=== PATIENT | female | born 1970 | race Two or more races ===

== ENCOUNTER 2016-08-09 16:33 | Emergency (ER) | payer SELFPAY ==
[~2016-08-09] VITALS: Ht 165.1 cm; Wt 104.7 kg
[2016-08-09] MEDS ORDERED: SODIUM CHLORIDE FLUSH 10ML SYR IVF ONE (18:30)
[2016-08-09] MEDS ORDERED: ASPIRIN 81 MG TABLET CHEW PO ONE (18:30)
[2016-08-09] MEDS ORDERED: ONDANSETRON 2MG/ML, 2ML IVPush ONE (18:30)
[2016-08-09] MEDS ORDERED: SODIUM CHLORIDE 0.9% 1,000ML IVBOLUS ONE (18:30)
[2016-08-09] MEDS ORDERED: ASPIRIN 81 MG TABLET CHEW ONE (18:32)
[2016-08-09] MEDS ORDERED: ONDANSETRON 2MG/ML, 2ML ONE (18:33)
[2016-08-09 18:42] LABS: ASPARTATE AMINO TRANSFERASE 27 U/L (15-37); BLOOD UREA NITROGEN 13 mg/dL (7-18)
[2016-08-09 18:48] LABS: IS PT STATUS REG ER OR PRE ER? YES
[2016-08-09 19:24] VITALS: BP 113/59
[2016-08-09 19:35] LABS: HCG UR OBC PASS
== END 2016-08-09 20:36 | disposition home or self-care (01) ==
LOC: ED 17:52
DX: R10.13 Epigastric pain (principal)
CPT/HCPCS: 36415; 71010; 80053; 81003; 81025; 83605; 83690; 83735; 84484; 85025; 85379; 85610; 93005; 96361; 96374; 99285; J2405; J7030

== ENCOUNTER 2016-11-13 20:47 | Emergency (ER) | payer MEDICAID ==
[~2016-11-13] VITALS: Ht 170.2 cm; Wt 107.0 kg
[2016-11-13] MEDS ORDERED: SODIUM CHLORIDE FLUSH 10ML SYR IVF ONE (21:00)
[2016-11-13] MEDS ORDERED: ASPIRIN 81 MG TABLET CHEW PO ONE (21:00)
[2016-11-13] MEDS ORDERED: PLEASE ENTER HEIGHT AND WEIGHT MC SCH (21:30)
[2016-11-13 21:31] LABS: HEMATOCRIT 40.3 % (34.6-47.8); HEMOGLOBIN 13.4 g/dL (11.7-16.4); WHITE BLOOD COUNT 8.7 x10^3/uL (3.4-10)
[2016-11-13 21:41] LABS: BLOOD UREA NITROGEN 23 mg/dL (7-18)
[2016-11-13 21:46] LABS: IS PT STATUS REG ER OR PRE ER? YES
[2016-11-13 21:51] VITALS: BP 148/78
[2016-11-13] MEDS ORDERED: ASPIRIN 81 MG TABLET CHEW ONE (21:56)
[2016-11-13] MEDS ORDERED: ACETAMINOPHEN 500 MG TABLET ONE (21:56)
[2016-11-13] MEDS ORDERED: ACETAMINOPHEN 500 MG TABLET PO ONE (22:00)
== END 2016-11-13 22:40 | disposition home or self-care (01) ==
LOC: ED 21:47
DX: I49.3 Ventricular premature depolarization (principal); R07.89 Other chest pain; R00.8 Other abnormalities of heart beat; F41.9 Anxiety disorder, unspecified; Z98.890 Other specified postprocedural states
CPT/HCPCS: 36415; 71010; 80048; 82040; 84484; 85025; 93005; 96372; 99285

== ENCOUNTER 2017-02-10 10:14 | Day surgery (SDC) | payer OTHER, MEDICAID ==
[2017-02-09 16:25] VITALS: BP 165/98
[2017-02-09 16:58] LABS: HEMATOCRIT 40.6 % (34.6-47.8); HEMOGLOBIN 13.4 g/dL (11.7-16.4); WHITE BLOOD COUNT 9.9 x10^3/uL (3.4-10)
[2017-02-09 17:00] LABS: BLOOD UREA NITROGEN 18 mg/dL (7-18)
[~2017-02-10] VITALS: Ht 165.1 cm; Wt 100.9 kg
[~2017-02-10 10:14] MED LIST: ASPI325T17 PO; IBUP200C8 PO; OMEP-110 PO; OMEP10CA4 PO
[2017-02-10] MEDS ORDERED: SODIUM CHLORIDE 0.9% 1,000 ML IV SCH ×2 (11:36→12:40)
[2017-02-10] MEDS ORDERED: BIVALIRUDIN 250 MG ONE (11:39)
[2017-02-10] MEDS ORDERED: VERAPAMIL 2.5 MG/ML, 2ML ONE ×2 (11:39→12:28)
[2017-02-10] MEDS ORDERED: MIDAZOLAM 1 MG/ML, 5ML ONE ×2 (11:39→12:25)
[2017-02-10] MEDS ORDERED: NITROGLYCERIN 5 MG/ML, 10ML ONE (11:39)
[2017-02-10] MEDS ORDERED: LIDOCAINE 2%, 20ML ONE (11:39)
[2017-02-10] MEDS ORDERED: FENTANYL PF 100 MCG/2ML ONE ×2 (11:39→12:25)
[2017-02-10] MEDS ORDERED: TICAGRELOR 90 MG TABLET ONE (11:39)
[2017-02-10] MEDS ORDERED: HEPARIN 1,000 UNITS/ML, 10ML ONE (11:40)
[2017-02-10] MEDS ORDERED: HYDR-3240 PO (11:43)
[2017-02-10] MEDS ORDERED: METO25TA35 PO (11:43)
[2017-02-10] MEDS ORDERED: DIPHENHYDRAMINE 50 MG/ML, 1ML ONE (12:28)
[2017-02-10] MEDS ORDERED: ASPIRIN 325 MG TABLET PO PRN (13:00)
[2017-02-10] MEDS ORDERED: ACETAMINOPHEN 325 MG TABLET PO PRN (13:00)
[2017-02-10] MEDS ORDERED: OMEPRAZOLE 20 MG CAPSULE.DR PO PRN (13:00)
[2017-02-10] MEDS ORDERED: HYDROcodone/APAP 5/325 TABLET PO SCH (13:00)
[2017-02-10] MEDS ORDERED: IBUPROFEN 200 MG TABLET PO PRN (13:00)
[2017-02-10] MEDS ORDERED: HYDROcodone/APAP 5/325 TABLET ONE (14:16)
[2017-02-10] MEDS ORDERED: HYDROcodone/APAP 5/325 TABLET PO ONE (14:30)
[2017-02-10] MEDS ORDERED: METOPROLOL TARTRATE 25 MG TABLET PO SCH (21:00)
== END 2017-02-10 16:21 | disposition home or self-care (01) ==
LOC: CACL 10:14
PROVIDERS: ATTEND Internal Medicine Cardiovascular Disease
DX: R07.9 Chest pain, unspecified (principal); I49.3 Ventricular premature depolarization
CPT/HCPCS: 36415; 80048; 85025; 93458; 99156; C1769; C1894; J1200; J1644; J2250; J3010; J3490; Q9967; J0583

== ENCOUNTER 2017-06-02 15:39 | Emergency (ER) | payer OTHER, MEDICAID ==
[~2017-06-02] VITALS: Ht 170.2 cm; Wt 112.3 kg
[~2017-06-02 15:39] MED LIST changes: +HYDR-3240 PO; +METO25TA35 PO
[2017-06-02 16:16] LABS: BASOPHILS # (AUTO) 0.06 x10^3/uL (0-0.1); BASOPHILS % (AUTO) 1 % (0-1); EOSINOPHILS # (AUTO) 0.49 x10^3/uL (0-0.4); EOSINOPHILS % (AUTO) 4 % (1-7); LYMPHOCYTES # (AUTO) 2.42 x10^3/uL (1-3.4); LYMPHOCYTES % (AUTO) 22 % (22-44); MD NO; MEAN CORPUSCULAR HEMOGLOBIN 27.4 pg (27.0-34.8); MEAN CORPUSCULAR HGB CONC 32.8 g/dL (32.4-35.8); MEAN CORPUSCULAR VOLUME 83.7 fL (80-100); MEAN PLATELET VOLUME 7.8 fL (7.4-10.4); MONOCYTES % (AUTO) 6 % (2-9); NEUTROPHILS # (AUTO) 7.46 x10^3/uL (1.8-6.8); NEUTROPHILS % (AUTO) 67 % (42-75); PLATELET COUNT 363 x10^3/uL (130-400); RED BLOOD COUNT 4.65 x10^6/uL (3.82-5.3); RED CELL DISTRIBUTION WIDTH 15.3 % (9.6-15.2)
[2017-06-02 16:31] LABS: MICROSCOPIC AUTO
[2017-06-02 16:32] LABS: CULTURE INDICATED? NO
[2017-06-02 16:33] LABS: ALBUMIN 3.4 g/dL (3.4-5.0); ANION GAP 7 mmol/L (5-15); CALCIUM 8.4 mg/dL (8.5-10.1); CHLORIDE 106 mmol/L (98-107)
[2017-06-02 16:38] LABS: ALANINE AMINOTRANSFERASE 30 U/L (12-78); ALKALINE PHOSPHATASE 56 U/L (45-117); BILIRUBIN,TOTAL 0.3 mg/dL (0.2-1.0); CREATININE 0.83 mg/dL (0.55-1.02); TOTAL PROTEIN 7.7 g/dL (6.4-8.2)
[2017-06-02] MEDS ORDERED: ASPI-496 PO (16:46)
[2017-06-02] MEDS ORDERED: ACETAMINOPHEN 500 MG TABLET ONE (18:15)
[2017-06-02] MEDS ORDERED: KETOROLAC 30 MG/1 ML ONE (18:17)
[2017-06-02] MEDS ORDERED: KETOROLAC 30 MG/1 ML IM ONE (18:30)
[2017-06-02] MEDS ORDERED: ACETAMINOPHEN 500 MG TABLET PO ONE (18:30)
[2017-06-02 18:31] VITALS: BP 131/76
== END 2017-06-02 18:32 | disposition home or self-care (01) ==
LOC: ED 17:45
DX: G44.209 Tension-type headache, unspecified, not intractable (principal); R19.7 Diarrhea, unspecified; J02.8 Acute pharyngitis due to other specified organisms; B97.89 Other viral agents as the cause of diseases classified elsewhere; Z79.82 Long term (current) use of aspirin
CPT/HCPCS: 36415; 70450; 71045; 80053; 81001; 83690; 84702; 85025; 86308; 87081; 87880; 96372; 99285; J1885

== ENCOUNTER 2019-08-04 10:23 | Emergency (ER) | payer MEDICAID, OTHER ==
[~2019-08-04] VITALS: Ht 165.1 cm; Wt 119.2 kg
[~2019-08-04 10:23] MED LIST changes: +ASPI-496 PO; -OMEP10CA4 PO; +OMEP10CA5 PO
--- NOTE | 2019-08-04 10:48 | NUR ---
PT HAS CO SOB, COUGH, FEVER FOR 1 WEEK W HEADACHE. PT HAS NO S/S RESP DISTRESS. VSS. DENIES CP. PA BEDSIDE.
[2019-08-04] MEDS ORDERED: PROCHLORPERAZINE 5 MG/ML, 2ML IM ONE (11:30)
[2019-08-04] MEDS ORDERED: KETOROLAC 30 MG/1 ML IM ONE (11:30)
[2019-08-04] MEDS ORDERED: DIPHENHYDRAMINE 25 MG CAPSULE PO ONE (11:30)
[2019-08-04] MEDS ORDERED: DIPHENHYDRAMINE 25 MG CAPSULE ONE (11:56)
[2019-08-04] MEDS ORDERED: KETOROLAC 30 MG/1 ML ONE ×2 (11:56→12:01)
[2019-08-04] MEDS ORDERED: PROCHLORPERAZINE 5 MG/ML, 2ML ONE (11:56)
--- NOTE | 2019-08-04 12:04 | NUR ---
MEDICATED FOR PAIN. WAITING FOR MD TO SEE THEN DC.
[2019-08-04 12:13] VITALS: BP 140/87
--- NOTE | 2019-08-04 12:36 | NUR ---
Patient/Caregiver given discharge instructions and they have confirmed that they understand the instructions. Patient ambulatory with steady gait.
== END 2019-08-04 12:43 | disposition home or self-care (01) ==
LOC: ED 11:52
DX: B34.9 Viral infection, unspecified (principal); R51 Headache; R11.0 Nausea; M79.10 Myalgia, unspecified site; R05 Cough; Z90.710 Acquired absence of both cervix and uterus
CPT/HCPCS: 71045; 96372; 99284; J0780; J1885; Q0163

== ENCOUNTER 2019-10-16 15:29 | Emergency (ER) | payer OTHER ==
[~2019-10-16] VITALS: Ht 165.1 cm; Wt 119.6 kg
[2019-10-16 15:30] VITALS: BP 146/80
--- NOTE | 2019-10-16 17:45 | NUR ---
ELSI RN: ASSUMED CARE FOR DC ONLY. Patient/Caregiver given discharge instructions and they have confirmed that they understand the instructions. Patient ambulatory with steady gait.
== END 2019-10-16 17:49 | disposition home or self-care (01) ==
LOC: ED 17:12
DX: L20.9 Atopic dermatitis, unspecified (principal); B34.9 Viral infection, unspecified; Z90.710 Acquired absence of both cervix and uterus
CPT/HCPCS: 99282

== ENCOUNTER 2020-10-13 05:09 | Emergency (ER) | payer MEDICAID ==
[~2020-10-13] VITALS: Ht 162.6 cm; Wt 126.2 kg
[~2020-10-13 05:09] MED LIST changes: +HYDR-2214 PO; -HYDR-3240 PO
--- NOTE | 2020-10-13 05:21 | NUR ---
EKG IN TRIAGE
[2020-10-13] MEDS ORDERED: KETOROLAC 30 MG/1 ML IM ONE (06:00)
[2020-10-13] MEDS ORDERED: KETOROLAC 60 MG/2 ML ONE (06:08)
[2020-10-13 06:42] LABS: BASOPHILS % (AUTO) 1 % (0-1); EOSINOPHILS % (AUTO) 5 % (1-7); LYMPHOCYTES % (AUTO) 27 % (22-44); MEAN CORPUSCULAR HEMOGLOBIN 29.9 pg (27.0-34.8); MEAN CORPUSCULAR HGB CONC 34.3 g/dL (32.4-35.8); MEAN PLATELET VOLUME 7.7 fL (7.4-10.4); MONOCYTES % (AUTO) 6 % (2-9); NEUTROPHILS % (AUTO) 61 % (42-75); PLATELET COUNT 292 x10^3/uL (130-400); RED BLOOD COUNT 4.66 x10^6/uL (3.82-5.3); RED CELL DISTRIBUTION WIDTH 13.8 % (9.6-15.2)
[2020-10-13 06:50] LABS: ALBUMIN 3.2 g/dL (3.4-5.0); ANION GAP 5 mmol/L (5-15); CALCIUM 8.3 mg/dL (8.5-10.1); CHLORIDE 109 mmol/L (98-107); CREATININE 0.59 mg/dL (0.55-1.02)
[2020-10-13 06:55] LABS: TROPONIN I < 0.015 ng/mL (0.000-0.045)
--- NOTE | 2020-10-13 06:56 | NUR ---
REPORT GIVEN TO KENAN MILLER
--- NOTE | 2020-10-13 06:57 | NUR ---
REPORT FROM GURDEEP GRAYSON.
--- NOTE | 2020-10-13 07:46 | NUR ---
PT RESTIN IN BED TBDC, AWAITING PAPERWORK FROM .
[2020-10-13 07:54] VITALS: BP 150/88
== END 2020-10-13 08:28 | disposition home or self-care (01) ==
LOC: ED 07:30
DX: J02.9 Acute pharyngitis, unspecified (principal); R06.02 Shortness of breath
CPT/HCPCS: 36415; 71045; 80048; 82040; 84484; 85025; 87081; 87880; 93005; 96372; 99285; J1885